=== PATIENT | female | born 1965 | race Caucasian/White ===

== ENCOUNTER → 2020-10-18 | Outpatient (CLI) | payer BC, OTHER ==
[~2020-10-18] MED LIST: ANAPROX DS550 MG PO; AUGMENTIN 875 M1 TAB PO; EXCEDRIN EXTRA1 EACH PO; MOTRIN800 MG PO; ROBITUSSIN DM120 ML PO; TOPCARE IBUPRO200 MG PO; TRAMADOL HCL50 MG PO
[2020-10-18 17:21] LABS: BASO % 0.2 % (0.0-1.0); EOS # 0.1 10*3/uL (0.0-0.4); EOS % 1.4 % (1.0-4.0); HEMATOCRIT 39.5 % (37.0-47.0); LYMPH # 2.3 10*3/uL (1.3-4.4); MEAN CELL VOLUME 95.9 fl (81.0-99.0); MEAN CORPUSCULAR HGB CONC 33.4 g/dl (33.0-37.0); MEAN PLATELET VOLUME 8.9 fl (9.6-12.3); MONO # 0.3 10*3/uL (0.1-1.0); MONO % 4.8 % (3.0-9.0); NEUT # 2.9 10*3/uL (2.3-7.9); NEUT % 52.4 % (47.0-73.0); PLATELET COUNT AUTOMATED 247 10*3/uL (130-400); RED BLOOD COUNT 4.12 10*6/uL (4.10-5.10); RED CELL DISTRI WIDTH 12.2 % (0-14.5); WHITE BLOOD COUNT 5.6 10*3/uL (4.8-10.8)
[2020-10-18 17:45] LABS: ALBUMIN 3.7 gm/dl (3.1-4.5); ALKALINE PHOSPHATASE 143 U/L (45-117); BUN 13 mg/dl (7-24); CHLORIDE 107 mmol/L (98-107); CREATININE 0.97 mg/dL (0.55-1.02); POTASSIUM 4.1 mmol/L (3.5-5.1); SGOT/AST 27 IU/L (3-35); SGPT/ALT 37 U/L (12-78); SODIUM 138 mmol/L (136-145); TOTAL PROTEIN 7.4 gm/dL (6.4-8.2)
== END | disposition home or self-care (01) ==
LOC: LAB 16:49
PROVIDERS: ATTEND Registered Nurse Psychiatric/Mental Health
DX: F43.10 Post-traumatic stress disorder, unspecified (principal)

== ENCOUNTER → 2020-10-20 | Outpatient (CLI) | payer BC, OTHER | END | disposition home or self-care (01) | LOC: RAD 13:23 | PROVIDERS: ATTEND Family Medicine | DX: M19.90 Unspecified osteoarthritis, unspecified site (principal) ==

== ENCOUNTER 2021-10-14 21:03 | Emergency (ER) | payer BC, OTHER ==
[2021-10-14 21:16] VITALS: BP 117/45
[2021-10-15] MEDS ORDERED: NAPROSYN500 MG PO (00:09)
== END 2021-10-15 00:28 | disposition home or self-care (01) ==
LOC: ED 21:03
DX: S96.912A Strain of unspecified muscle and tendon at ankle and foot level, left foot, initial encounter (principal); S30.0XXA Contusion of lower back and pelvis, initial encounter; Z79.899 Other long term (current) drug therapy; Z79.82 Long term (current) use of aspirin; W55.12XA Struck by horse, initial encounter; Y93.89 Activity, other specified; Y92.89 Other specified places as the place of occurrence of the external cause; Y99.8 Other external cause status

== ENCOUNTER → 2022-11-23 | Outpatient (CLI) | payer BC, OTHER ==
[~2022-11-23] MED LIST changes: +NAPROSYN500 MG PO
[2022-11-23 15:03] LABS: ALKALINE PHOSPHATASE 121 U/L (46-116); BUN 15 mg/dl (9-23); CHLORIDE 106 mmol/L (98-107); POTASSIUM 4.1 mmol/L (3.4-5.1); SGPT/ALT 18 U/L (10-49)
== END | disposition home or self-care (01) ==
LOC: LAB 14:26
PROVIDERS: ATTEND Orthopaedic Surgery
DX: M25.561 Pain in right knee (principal); M25.562 Pain in left knee; R53.83 Other fatigue

== ENCOUNTER 2024-02-04 17:50 | Emergency (ER) | payer BC ==
[~2024-02-04] VITALS: Ht 167.6 cm; Wt 97.5 kg
[2024-02-04 18:13] VITALS: BP 111/64
== END 2024-02-04 20:12 | disposition home or self-care (01) ==
LOC: ED 17:50
DX: S70.01XA Contusion of right hip, initial encounter (principal); Z98.890 Other specified postprocedural states; V80.010A Animal-rider injured by fall from or being thrown from horse in noncollision accident, initial encounter; Y93.89 Activity, other specified; Y92.009 Unspecified place in unspecified non-institutional (private) residence as the place of occurrence of the external cause; Y99.8 Other external cause status

== ENCOUNTER 2024-07-21 19:17 | Emergency (ER) | payer BC ==
[~2024-07-21] VITALS: Ht 165.1 cm; Wt 113.4 kg
[2024-07-21 19:30] VITALS: BP 148/78
[2024-07-21] MEDS ORDERED: Rabies Immune Globulin 300 UNIT/2 ML VIAL IM ONE ×2 (19:50→20:05)
[2024-07-21] MEDS ORDERED: Tdap Vaccine 0.5 ML SYR (Adult Vaccine) IM ONE (19:50)
[2024-07-21] MEDS ORDERED: Rabies Vaccine 1 ML VIAL IM ONE (19:50)
[2024-07-21] MEDS ORDERED: Amoxicillin/Clavulanate Pota 875 MG TAB PO ONE (19:50)
[2024-07-21] MEDS ORDERED: Rabies Immune Globulin 150O UNIT/10 ML IM ONE (20:05)
[2024-07-21] MEDS ORDERED: AMOX-CLAV 875-1 EACH PO (21:02)
== END 2024-07-21 21:18 | disposition home or self-care (01) ==
LOC: ED 19:17
DX: S51.851A Open bite of right forearm, initial encounter (principal); S61.452A Open bite of left hand, initial encounter; Z79.82 Long term (current) use of aspirin; Z79.899 Other long term (current) drug therapy; W55.51XA Bitten by raccoon, initial encounter; Y93.89 Activity, other specified; Y92.89 Other specified places as the place of occurrence of the external cause; Y99.8 Other external cause status

== ENCOUNTER 2024-07-23 14:31 | Emergency (ER) | payer BC ==
[~2024-07-23] VITALS: Ht 165.1 cm; Wt 113.4 kg
[~2024-07-23 14:31] MED LIST changes: +AMOX-CLAV 875-1 EACH PO
[2024-07-23 14:49] VITALS: BP 100/65
[2024-07-23] MEDS ORDERED: Rabies Vaccine 1 ML VIAL IM ONE (15:10)
== END 2024-07-23 15:28 | disposition home or self-care (01) ==
LOC: ED 14:31
DX: S61.451D Open bite of right hand, subsequent encounter (principal); S61.452D Open bite of left hand, subsequent encounter; Z79.899 Other long term (current) drug therapy; W55.51XD Bitten by raccoon, subsequent encounter

== ENCOUNTER 2024-07-30 14:07 | Emergency (ER) | payer BC ==
[~2024-07-30] VITALS: Ht 165.1 cm; Wt 113.4 kg
[2024-07-30 14:10] VITALS: BP 124/85
[2024-07-30] MEDS ORDERED: Rabies Vaccine 1 ML VIAL IM ONE (14:20)
== END 2024-07-30 14:36 | disposition home or self-care (01) ==
LOC: ED 14:07
DX: S41.152D Open bite of left upper arm, subsequent encounter (principal); S41.151D Open bite of right upper arm, subsequent encounter; Z23 Encounter for immunization; Z79.899 Other long term (current) drug therapy; W55.51XD Bitten by raccoon, subsequent encounter

== ENCOUNTER 2024-08-05 12:09 | Emergency (ER) | payer BC ==
[~2024-08-05] VITALS: Ht 165.1 cm; Wt 113.4 kg
[2024-08-05 12:19] VITALS: BP 102/60
[2024-08-05] MEDS ORDERED: Rabies Vaccine 1 ML VIAL IM ONE (12:20)
== END 2024-08-05 12:21 | disposition home or self-care (01) ==
LOC: ED 12:09
DX: T14.8XXD Other injury of unspecified body region, subsequent encounter (principal); Z79.899 Other long term (current) drug therapy; W55.51XD Bitten by raccoon, subsequent encounter